=== PATIENT | female | born 1960 | race Caucasian/White ===

== ENCOUNTER 2016-11-08 05:29 | Emergency (ER) | payer SELFPAY ==
[2016-11-08] MEDS ORDERED: HYOSCYAMINE SULFATE ODT 0.125 MG TAB.SUBL SL ONE (05:56)
[2016-11-08] MEDS ORDERED: ONDANSETRON HCL IV 4 MG/2 ML VIAL IVP ONE (05:56)
[2016-11-08] MEDS ORDERED: 0.9 % SODIUM CHLORIDE 1000ML 1,000 ML IV SCH (06:00)
--- NOTE | 2016-11-08 06:01 | Emergency Department Record ---
History of Present Illness - General Chief Complaint: Abdominal Pain Stated Complaint: ABDOMINAL PAIN Time Seen by Provider: 11/08/16 05:56 Source: Patient Mode of Arrival: Ambulatory Limitations: No limitations - History of Present Illness Initial Comments: 56 yo female presents to ED with a CC of abdominal pain for the past 3 days. Patient reports that eating worsens her symptoms, reports nausea/vomiting this morning. Patient denies fevers, chills, or history of previous symptoms, denies previous abdominal surgeries, and denies health problems at her baseline. Patient attempted a suppository for her symptoms without relief. MD Complaint: Abdominal pain Onset/Timin -: Days(s) Location: Periumbilical Radiation: None Migration to: No migration Severity: Mild Quality: Dull Consistency: Constant Improves With: Nothing Worsens With: Eating Associated Symptoms: Nausea, Vomiting - Related Data Patient : No Previous Rx's Medication Instructions Recorded Hyoscyamine Sulfate [Levsin-Sl] 0.25 mg SL Q8H PRN #15 tab.subl 11/08/16 Ondansetron [Zofran Odt] 4 mg PO Q6H PRN #15 tab.rapdis 11/08/16 Allergies Allergy/AdvReac Type Severity Reaction Status Date / Time No Known Drug Allergies Allergy Verified 11/08/16 05:41 Travel Screening - Travel/Exposure Within Last 30 Days Have you traveled within the last 30 days?: No - Travel/Exposure Within Last Year Have you traveled outside the [place] in the last year?: No - Additonal Travel Details Have you been exposed to anyone with a communicable illness?: No - Travel Symptoms Symptom Screening: None Review of Systems Constitutional: Denies: Chills, Fever, Malaise, Night sweats Eyes: Denies: Eye discharge, Eye pain ENT: Denies: Congestion, Ear pain, Epistaxis Respiratory: Denies: Cough, Dyspnea Cardiovascular: Denies: Chest pain, Dyspnea on exertion Endocrine: Denies: Fatigue, Heat or cold intolerance Gastrointestinal: Reports: Abdominal pain, Nausea, Vomiting. Denies: Constipation Genitourinary: Denies: Frequency, Hematuria, Incontinence, Retention Musculoskeletal: Denies: Arthralgia, Back pain, Gout, Joint swelling Skin: Denies: Bruising, Change in color Neurological: Denies: Abnormal gait, Confusion, Headache, Tingling, Tremors Psychiatric: Denies: Anxiety Hematological/Lymphatic: Denies: Anemia, Blood Clots Past Medical History - SOCIAL HISTORY Smoking Status: Current every day smoker Alcohol Use: Occassional Drug Use: None - RESPIRATORY Hx Respiratory Disorders: No - CARDIOVASCULAR Hx Cardio Disorders: No - NEURO Hx Neuro Disorders: No - GI Hx GI Disorders: Yes Hx Diverticulitis: Yes - Hx Genitourinary Disorders: No - ENDOCRINE Hx Endocrine Disorders: No - MUSCULOSKELETAL Hx Musculoskeletal Disorders: No - PSYCH Hx Psych Problems: No - HEMATOLOGY/ONCOLOGY Hx Hematology/Oncology Disorders: No Family Medical History Any Significant Family History?: No Physical Exam - General General Appearance: Alert, Oriented x3, Cooperative, Mild distress Limitations: No limitations - Head Head exam: Atraumatic, Normocephalic, Normal inspection Head exam detail: negative: Abrasion, Contusion, Pereyra's sign, General tenderness, Hematoma, Laceration - Eye Eye exam: Normal appearance. negative: Conjunctival injection, Periorbital swelling, Periorbital tenderness, Scleral icterus - ENT Ear exam: negative: Auricular hematoma, Auricular trauma Nasal Exam: negative: Active bleeding, Discharge, Dried blood, Foreign body Mouth exam: negative: Drooling, Laceration, Muffled voice, Tongue elevation - Neck Neck exam: Normal inspection. negative: Meningismus, Tenderness - Respiratory Respiratory exam: Normal lung sounds bilaterally. negative: Respiratory distress, Rhonchi, Stridor, Wheezes - Cardiovascular Cardiovascular Exam: Regular rate, Normal rhythm, Normal heart sounds - GI/Abdominal GI/Abdominal exam: Soft. negative: Organomegaly, Rebound, Rigid, Tenderness - Rectal Rectal exam: Deferred - exam: Deferred - Extremities Extremities exam: Normal inspection. negative: Calf tenderness, Pedal edema, Tenderness - Back Back exam: Denies: CVA tenderness (R), CVA tenderness (L) - Neurological Neurological exam: Alert, Normal gait, Oriented X3 - Psychiatric Psychiatric exam: Normal affect, Normal mood - Skin Skin exam: Normal color. negative: Abrasion Type of lesion: negative: abrasion Course Vital Signs 11/08/16 05:36 Temperature 98.4 F Pulse Rate [ 110 H Pulse Ox Probe] Respiratory 22 Rate Blood Pressure 126/84 [Left Arm] Pulse Ox 92 L - Reevaluation(s) Reevaluation #1: 11/08/16 06:47 Labs reviewed, UA appears contaminated, labs are otherwise grossly unremarkable for an acute process. CT Abdomen and Pelvis: Nonspecific enteritis Patient was updated on all results, reports feeling "about the same", no vomiting while in ED, and repeat abdominal examination is benign. Will obtain repeat UA sample. Reevaluation #2: 11/08/16 07:50 Repeat UA appears normal. Patient was updated on results, and appears stable for discharge at this time on Zofran and Levsin as directed for her symptoms Medical Decision Making - Lab Data Result diagrams: 11/08/16 06:00 11/08/16 06:00 Disposition Disposition: Discharge Clinical Impression: Abdominal pain Qualifiers: Abdominal location: generalized Qualified Code(s): R10.84 - Generalized abdominal pain Disposition: Home, Self-Care Condition: (2) Stable Instructions: Abdominal Pain (ED) Additional Instructions: Return to ED if your symptoms worsen or if you have any concerns. Follow-up with you family doctor in 3-5 days as directed. Levsin and Zofran as directed. Prescriptions: Hyoscyamine Sulfate [Levsin-Sl] 0.25 mg SL Q8H PRN #15 tab.subl PRN Reason: Abdominal Pain Ondansetron [Zofran Odt] 4 mg PO Q6H PRN #15 tab.rapdis PRN Reason: Nausea/Vomiting Forms: Patient Portal Access Time of Disposition: 07:51
[2016-11-08 06:09] LABS: HEMATOCRIT 44.8 % (35.0-47.0); MEAN CELL VOLUME 89.6 fl (81-97); MEAN CORPUSCULAR HGB CONC 33.5 g/dl (32-36); MEAN PLATELET VOLUME 9.4 fl (7.4-10.4); PLATELET COUNT 325 K/uL (130-400); RED CELL DISTRIBUTION WIDTH 13.5 % (11.5-14.5); WHITE BLOOD COUNT W/O DIFF 7.9 K/uL (4.2-12.2)
[2016-11-08 06:18] LABS: ALB/GLOB RATIO 1.2 (1.1-1.8); ALBUMIN 3.9 gm/dL (3.5-5.0); ALKALINE PHOSPHATASE 85 U/L (38-126); ALT/SGPT 16 U/L (9-52); ANION GAP 5.4 (7-16); AST/SGOT 14 U/L (14-36); BLOOD UREA NITROGEN 13 mg/dL (7-17); CARBON DIOXIDE 28.6 mmol/L (22-30); CREATININE 0.7 mg/dL (0.52-1.04); EST GLOMERULAR FILTRATION RATE > 60 ml/min; GLUCOSE,RANDOM 117 mg/dL (70-110); LIPASE 39 U/L (23-300); TOTAL PROTEIN 7.1 gm/dL (6.3-8.2)
[2016-11-08 07:46] LABS: URINE APPEARANCE CLEAR; URINE BILIRUBIN NEGATIVE (NEGATIVE); URINE BLOOD TRACE-NONHEMOLYZED (NEGATIVE); URINE COLOR YELLOW; URINE GLUCOSE (UA) NEGATIVE (NEGATIVE); URINE KETONE NEGATIVE (NEGATIVE); URINE LEUKOCYTE ESTERASE NEGATIVE (NEGATIVE); URINE NITRITE NEGATIVE (NEGATIVE); URINE PROTEIN TRACE (NEGATIVE); URINE UROBILINOGEN 0.2 E.U./dL (0.20 - 1.00)
[2016-11-08 07:47] LABS: URINE BACTERIA NONE SEEN; URINE EPITHELIAL CELLS 0 - 2 (FEW); URINE WBC 0 - 2 (0-2/hpf)
== END 2016-11-08 08:05 | disposition home or self-care (01) ==
LOC: ER 05:29
DX: R10.84 Generalized abdominal pain (principal); R11.2 Nausea with vomiting, unspecified
CPT/HCPCS: 74177; 80053; 81001; 83690; 85027; 96374; 99284; J2405; J7030